=== PATIENT | female | born 1930 | race Caucasian/White ===

== ENCOUNTER 2019-12-03 19:54 | Inpatient (IN) ==
[2019-12-03] MEDS ORDERED: cefTRIAXone 1,000 MG in SODIUM CHLORIDE 0.9% 100 ML IV STA (20:20)
[2019-12-03] MEDS ORDERED: LEVOFLOXACIN INJ 500 MG in PREMIX 1 EACH IV STA (20:20)
[2019-12-03 20:21] LABS: ABG Base Excess -27.4 MMOL/L (-2.5-2.5); ABG HCO3 9.2 MMOL/L (20-26); ABG Oxygen Saturation 99.1 % (95-100); ABG PCO2 66.8 MM HG (35-48); ABG PO2 331.5 MM HG (80-95); ABG TCO2 11.3 MMOL/L (23-27)
[2019-12-03] MEDS ORDERED: EPINEPHrine 1 MG/10 ML SYRINGE IV STA (20:21)
[2019-12-03] MEDS ORDERED: NOREPINEPHRINE 4 MG/4 ML VIAL IV ONE (20:24)
[2019-12-03 20:25] LABS: ABG PH 6.759 (7.35-7.45)
[2019-12-03] MEDS ORDERED: SODIUM BICARBONATE 50 MEQ/50 ML VIAL IV STA ×2 (20:27)
[2019-12-03] MEDS ORDERED: NOREPINEPHRINE 8 MG in SODIUM CHLORIDE 0.9% 242 ML IV SCH (20:30)
[2019-12-03 20:50] LABS: Apearance,Urine CLEAR (Clear); Bilirubin,Urine Negative (Negative); Blood, Urine Negative (Negative); Glucose,Urine (UA) Negative (Negative); Hyaline Casts,Urine 1 /LPF (0-3); Ketones,Urine Negative (Negative); Nitrite,Urine Negative (Negative); Protein,Urine 30 MG/DL; RBC,Urine <1 /HPF (0-4); Squamous Epithelial Cell,Urine Occasional /HPF (0-10); Urine Color Yellow (Yellow); Urine Specific Gravity 1.019 (1.001-1.035); Urine Urobilinogen < 2.0 EU/DL (0.2-1.0)
[2019-12-03 21:30] LABS: Alanine Aminotransferase 335 U/L (13-56); Albumin 2.3 G/DL (3.4-5.0); Alkaline Phosphatase 59 U/L (45-117); Aspartate Amino Transferase 529 U/L (0-37); Blood Urea Nitrogen 34 MG/DL (7-18); Calcium 9.4 MG/DL (8.5-10.1); Estimated Glom Filtration Rate 15 ML/MIN; Glucose 211 MG/DL (74-106); Osmolality,Calculated 303.6 MOS/KG (273-304)
[2019-12-03 21:40] LABS: Basophils # 0.1 10*3/uL (0.0-0.2); Basophils % 0.4 % (0.0-0.8); Eosinophils # 0.1 10*3/uL (0.0-0.87); Eosinophils % 0.4 % (0.00-10.9); Hematocrit 55.2 VOL% (35.7-47.0); Hemoglobin 16.2 GM/DL (12.0-16.0); Immature Granulocytes % 6.5 %; Immature Granulocytes Absolute 0.98 #; Lymphocytes # 4.2 10*3/uL (1.4-4.0); Lymphocytes % 27.6 % (21.3-54.2); Mean Corpuscular HGB Conc 29.3 GM/DL (32-36); Mean Corpuscular Volume 101.1 FL (87-102); Mean Platelet Volume 11.9 FL (9.6-12.0); Monocytes % 5.6 % (1.7-12.7); Neutrophils % 59.5 % (38.7-73.9); Platelet Count 282 T/CUMM (130-400); Red Blood Count 5.46 MC/CUMM (3.8-5.5); Red Cell Distribution Width 14.6 % (9.3-17.3)
[2019-12-03 21:46] LABS: ABG HCO3 9.8 MMOL/L (20-26); ABG Oxygen Saturation 85.7 % (95-100); ABG PCO2 43.4 MM HG (35-48); ABG TCO2 10.1 MMOL/L (23-27)
[2019-12-03 21:48] LABS: ABG PH 7.015 (7.35-7.45)
[2019-12-03 21:48] LABS: Band Neutrophils 7 % (0-10); Lymphocytes 35 % (20-55); Metamyelocytes 4 %; Nucleated Red Blood Cells 1 (0-5); Segmented Neutrophils 50 % (50-85); Total Cells Counted 100
[2019-12-03 21:50] LABS: Anisocytosis Slight; Macrocytosis Slight
[2019-12-03] MEDS ORDERED: SODIUM CHLORIDE 0.9% 1,000 ML IV STA ×3 (22:06→23:57)
[2019-12-03] MEDS ORDERED: LACTATED RINGERS 1,000 ML IV SCH ×2 (23:03→23:30)
[2019-12-03] MEDS ORDERED: ALBUTEROL 2.5 MG/3 ML NEB RESP TX PRN (23:03)
[2019-12-03] MEDS ORDERED: ONDANSETRON 4 MG/2 ML VIAL IV PRN (23:03)
[2019-12-03] MEDS ORDERED: PROMETHAZINE 25 MG/1 ML VIAL IM PRN (23:03)
[2019-12-03] MEDS ORDERED: ENOXAPARIN 40 MG/0.4 ML SYRINGE ONE (23:13)
[2019-12-03] MEDS: NOREPINEPHRINE 8 MG in SODIUM CHLORIDE 0.9% 242 ML IV SCH (23:39)
[2019-12-04] MEDS ORDERED: LORazepam 2 MG/1 ML VIAL IV PRN (00:08)
[2019-12-04] MEDS ORDERED: fentaNYL INJ 1,250 MCG in SODIUM CHLORIDE 0.9% 225 ML IV PRN (00:09)
[2019-12-04] MEDS ORDERED: CISATRACURIUM 200 MG in SODIUM CHLORIDE 0.9% 180 ML IV PRN (00:21)
[2019-12-04] MEDS ORDERED: MIDAZOLAM 100 MG in SODIUM CHLORIDE 0.9% 80 ML IV SCH (00:30)
[2019-12-04 00:46] LABS: INR 2.5; PT Patient Result 25.9 SECS (9.8-11.9)
[2019-12-04] MEDS: PHENYLEPHRINE DRIP 40 MG/250 ML PREMIX IV PRN ×6 (00:50→13:00)
[2019-12-04 00:52] LABS: Partial Thromboplastin Time 148.7 SECS (23.9-33.8)
[2019-12-04] MEDS ORDERED: SODIUM CHLORIDE 0.9% 1,000 ML IV PRN (01:03)
[2019-12-04 01:09] LABS: Albumin 1.8 G/DL (3.4-5.0); Bilirubin,Total 0.5 MG/DL (0.2-1.0); Calcium 7.5 MG/DL (8.5-10.1); Osmolality,Calculated 302.9 MOS/KG (273-304); Total Protein 4.1 G/DL (6.4-8.3)
[2019-12-04 01:13] LABS: CKMB % 3.6 %
[2019-12-04 01:15] LABS: Troponin I 1.06 NG/ML (0.00-0.045)
[2019-12-04] MEDS ORDERED: DEXTROSE 50% 25 GM/50 ML VIAL IV ONE (01:17)
[2019-12-04] MEDS: SODIUM BICARB INJ 150 MEQ in DEXTROSE 5% 850 ML IV SCH ×2 (01:33→10:01)
[2019-12-04 02:01] LABS: Ferritin 4175.6 ng/ml (8-252)
[2019-12-04] MEDS: NOREPINEPHRINE 8 MG in SODIUM CHLORIDE 0.9% 242 ML IV SCH ×3 (03:37→10:47)
[2019-12-04] MEDS: PANTOPRAZOLE 40 MG VIAL IV SCH ×2 (03:52→09:02)
[2019-12-04 04:40] VITALS: BP 85/46
[2019-12-04 06:11] LABS: ABG Base Excess -18.7 MMOL/L (-2.5-2.5); ABG HCO3 11.4 MMOL/L (20-26); ABG Oxygen Saturation 96.3 % (95-100); ABG PCO2 44.7 MM HG (35-48); ABG PO2 104.4 MM HG (80-95); ABG TCO2 12.8 MMOL/L (23-27)
[2019-12-04 06:14] LABS: ABG PH 7.026 (7.35-7.45)
[2019-12-04 06:30] LABS: Basophils % 0.5 % (0.0-0.8); Hematocrit 34.9 VOL% (35.7-47.0); Hemoglobin 10.5 GM/DL (12.0-16.0); Immature Granulocytes % 1.4 %; Immature Granulocytes Absolute 0.03 #; Lymphocytes # 0.9 10*3/uL (1.4-4.0); Lymphocytes % 40.6 % (21.3-54.2); Mean Corpuscular HGB Conc 30.1 GM/DL (32-36); Mean Platelet Volume 11.2 FL (9.6-12.0); Monocytes % 4.1 % (1.7-12.7); NRBC # 0.02 10*3/uL; Neutrophils % 53.4 % (38.7-73.9); Platelet Count 143 T/CUMM (130-400); Red Blood Count 3.56 MC/CUMM (3.8-5.5); Red Cell Distribution Width 14.6 % (9.3-17.3); White Blood Count 2.2 T/CUMM (4-12)
[2019-12-04 06:42] LABS: PT Patient Result 20.3 SECS (9.8-11.9); Partial Thromboplastin Time 64.3 SECS (23.9-33.8)
[2019-12-04 06:43] LABS: Band Neutrophils 2 % (0-10); Eosinophils 2 % (0-10); Lymphocytes 55 % (20-55); Segmented Neutrophils 37 % (50-85); Total Cells Counted 100
[2019-12-04 06:44] LABS: Atypical Lymphocytes Few
[2019-12-04 06:47] LABS: Albumin 1.8 G/DL (3.4-5.0); Bilirubin,Total 0.8 MG/DL (0.2-1.0); Calcium 6.7 MG/DL (8.5-10.1); Osmolality,Calculated 301.1 MOS/KG (273-304); Total Protein 3.9 G/DL (6.4-8.3)
[2019-12-04] MEDS ORDERED: DILTIAZEM 30 MG TABLET PO SCH (08:00)
[2019-12-04] MEDS ORDERED: FENOFIBRATE 160 MG TABLET PO SCH (08:00)
[2019-12-04] MEDS ORDERED: CHOLECALCIFEROL 1,000 UNIT TABLET PO SCH (09:00)
[2019-12-04] MEDS ORDERED: CYANOCOBALAMIN 5000 MCG PO SCH (09:00)
[2019-12-04] MEDS ORDERED: FERROUS SULFATE 325 MG TABLET PO SCH (09:00)
[2019-12-04] MEDS ORDERED: MEMANTINE 10 MG TABLET PO SCH (09:00)
[2019-12-04] MEDS ORDERED: ENOXAPARIN 30 MG/0.3 ML SYRINGE SUBCUT SCH (09:00)
[2019-12-04] MEDS ORDERED: DULoxetine 30 MG CAPSULE PO SCH (09:00)
[2019-12-04] MEDS: MINERAL OIL/PETROLATUM OPH OINT 3.5 GM TUBE BOTH EYES SCH ×2 (09:02→15:05)
[2019-12-04] MEDS ORDERED: DEXAMETHASONE 4 MG/1 ML VIAL IV SCH (09:30)
[2019-12-04] MEDS ORDERED: SODIUM CHLORIDE 0.9% IV SCH (11:00)
[2019-12-04] MEDS ORDERED: CLINDAMYCIN IV SCH (11:00)
[2019-12-04 12:05] LABS: ABG Base Excess -17.8 MMOL/L (-2.5-2.5); ABG HCO3 11.2 MMOL/L (20-26); ABG Oxygen Saturation 87.1 % (95-100); ABG PCO2 44.8 MM HG (35-48); ABG PO2 58.1 MM HG (80-95)
[2019-12-04 12:08] LABS: ABG PH 7.056 (7.35-7.45)
[2019-12-04] MEDS ORDERED: AMIODARONE 200 MG TABLET PO SCH (21:00)
[2019-12-05] MEDS ORDERED: LEVOFLOXACIN INJ 250 MG in PREMIX 1 EACH IV SCH (20:00)
== END 2019-12-04 16:36 | disposition expired | DRG 208 ==
LOC: EDUNIT# → EDBD → N.ED 19:54 → SUATTDRO 22:20 → N.EDINP 22:20 → N.ICU 12-04 00:28
PROVIDERS: ADMIT Internal Medicine; ATTEND Internal Medicine